=== PATIENT | male | born 1975 | race American Indian/Alaskan Native ===

== ENCOUNTER 2016-09-27 20:06 | Emergency (ER) | payer OTHER ==
[2016-09-28] MEDS ORDERED: HCTZ PO ONE (00:58)
[2016-09-28] MEDS ORDERED: NORVASC PO ONE (00:58)
[2016-09-28] MEDS ORDERED: ZESTRIL PO ONE (00:58)
[2016-09-28] MEDS ORDERED: CATAPRES PO ONE (01:46)
[2016-09-28 04:12] VITALS: BP 148/88
--- NOTE | 2016-09-28 04:18 | Emergency Department Report ---
ED General Adult HPI - General Chief complaint: High BP Stated complaint: HIGH BP Source: patient Mode of arrival: Ambulatory Limitations: No Limitations - History of Present Illness Initial comments: 41 year old male presents to ED with elevated blood pressure. patient states he was at a job physical and was sent to the ED because he had a BP of 188/122. patient states he has history of HBP but has been out of his meds x1 month due to being in [facility]. patient denies headache, dizziness, chest pain, SOB, nausea/ vomiting, syncope, lightheadness, SOB, weakness. patient is stable, neurologically intact and in no acute distress. -: Sudden Radiation: non-radiation Severity scale (0 -10): 0 Improves with: none Worsens with: none Associated Symptoms: denies other symptoms, loss of appetite. denies: confusion , chest pain, cough, diaphoresis, fever/chills, headaches, nausea/vomiting, rash , seizure, shortness of breath, syncope, weakness Treatments Prior to Arrival: none - Related Data Previous Rx's Medication Instructions Recorded Last Taken Type Hydrochlorothiazide [HCTZ] 12.5 mg PO BID #60 capsule 09/28/16 Unknown Rx Lisinopril [Zestril TAB] 5 mg PO QDAY #30 tablet 09/28/16 Unknown Rx amLODIPine [Norvasc] 5 mg PO DAILY #30 tab 09/28/16 Unknown Rx Allergies Allergy/AdvReac Type Severity Reaction Status Date / Time No Known Allergies Allergy Unverified 09/27/16 21:06 ED Review of Systems ROS: Stated complaint: HIGH BP Other details as noted in HPI Constitutional: denies: chills, fever Eyes: denies: eye pain, eye discharge, vision change ENT: denies: ear pain, throat pain Respiratory: denies: cough, shortness of breath, SOB with exertion, wheezing Cardiovascular: denies: chest pain, palpitations, edema, syncope Endocrine: no symptoms reported Gastrointestinal: denies: abdominal pain, nausea, diarrhea Genitourinary: denies: urgency, dysuria Musculoskeletal: denies: back pain, joint swelling, arthralgia Skin: denies: rash, lesions Neurological: denies: headache, weakness, paresthesias Psychiatric: denies: anxiety, depression Hematological/Lymphatic: denies: easy bleeding, easy bruising ED Past Medical Hx - Past Medical History Previous Medical History?: Yes Hx Hypertension: Yes (lisinopril, amlodipine, hctz,) - Surgical History Past Surgical History?: Yes Additional Surgical History: abdominal surgery - Social History Smoking Status: Never Smoker Substance Use Type: None - Medications Home Medications: Home Medications Medication Instructions Recorded Confirmed Last Taken Type Hydrochlorothiazide [HCTZ] 12.5 mg PO BID #60 capsule 09/28/16 Unknown Rx Lisinopril [Zestril TAB] 5 mg PO QDAY #30 tablet 09/28/16 Unknown Rx amLODIPine [Norvasc] 5 mg PO DAILY #30 tab 09/28/16 Unknown Rx ED Physical Exam - General Limitations: No Limitations General appearance: alert, in no apparent distress - Head Head exam: Present: atraumatic, normocephalic - Eye Eye exam: Present: normal appearance - ENT ENT exam: Present: normal exam, mucous membranes moist - Neck Neck exam: Present: normal inspection - Respiratory Respiratory exam: Present: normal lung sounds bilaterally. Absent: respiratory distress - Cardiovascular Cardiovascular Exam: Present: regular rate, normal rhythm. Absent: systolic murmur, diastolic murmur, rubs, gallop - GI/Abdominal GI/Abdominal exam: Present: soft, normal bowel sounds. Absent: distended, tenderness, guarding - Rectal Rectal exam: Present: deferred - Extremities Exam Extremities exam: Present: normal inspection, full ROM - Back Exam Back exam: Present: normal inspection, full ROM - Neurological Exam Neurological exam: Present: alert, oriented X3, normal gait - Expanded Neurological Exam Expanded Neurological exam: Absent: innattentive Patient oriented to: Present: person, place, time Speech: Present: fluid speech Cranial nerves: EOM's Intact: Normal, Nystagmus: Normal Cerebellar function: Finger to Nose: Normal Sensory exam: Upper Extremity Light Touch: Normal, Lower Extremity Light Touch: Normal Motor strength exam: RUE: 5, LUE: 5, RLE: 5, LLE: 5 DTR: bicep (R): 2+, bicep (L): 2+, knee (R): 2+, knee (L): 2+ Best Eye Response ([place]): (4) open spontaneously Best Motor Response ([place]): (6) obeys commands Best Verbal Response ([place]): (5) oriented [place] Total: 15 - Psychiatric Psychiatric exam: Present: normal affect, normal mood - Skin Skin exam: Present: warm, dry, intact, normal color. Absent: rash ED Course Vital Signs 09/27/16 09/28/16 09/28/16 21:07 00:10 01:53 Temperature 98.4 F 97.4 F L Pulse Rate 75 70 73 Respiratory 18 18 16 Rate Blood Pressure 157/108 Blood Pressure 171/104 196/150 [Right] O2 Sat by Pulse 100 99 95 Oximetry 09/28/16 09/28/16 02:52 04:11 Temperature Pulse Rate Respiratory Rate Blood Pressure Blood Pressure 148/102 148/88 [Right] O2 Sat by Pulse Oximetry ED Medical Decision Making - Lab Data Vital Signs 09/27/16 09/28/16 09/28/16 21:07 00:10 01:53 Temperature 98.4 F 97.4 F L Pulse Rate 75 70 73 Respiratory 18 18 16 Rate Blood Pressure 157/108 Blood Pressure 171/104 196/150 [Right] O2 Sat by Pulse 100 99 95 Oximetry 09/28/16 09/28/16 02:52 04:11 Temperature Pulse Rate Respiratory Rate Blood Pressure Blood Pressure 148/102 148/88 [Right] O2 Sat by Pulse Oximetry - Medical Decision Making 41 year old male presents to ED with hypertension. patient is asymptomatic. patient was given clonidine and his home meds which he has not had in approx 4weeks (lisinopril, norvasc, hctz) during ED visit. patient will be given 30 day supply of blood pressure medications while he seeks a new PCP. Critical care attestation.: If time is entered above; I have spent that time in minutes in the direct care of this critically ill patient, excluding procedure time. ED Disposition Clinical Impression: Hypertension Qualifiers: Hypertension type: essential hypertension Qualified Code(s): I10 - Essential ( primary) hypertension Disposition: DISCHARGED TO HOME OR SELFCARE Is pt being admited?: No Does the pt Need Aspirin: No Condition: Stable Instructions: Hypertension (ED) Prescriptions: amLODIPine [Norvasc] 5 mg PO DAILY #30 tab Hydrochlorothiazide [HCTZ] 12.5 mg PO BID #60 capsule Lisinopril [Zestril TAB] 5 mg PO QDAY #30 tablet Referrals: PRIMARY CARE, [Primary Care Provider] - 3-5 Days Forms: Work/School Release Form(ED)
== END 2016-09-28 04:16 | disposition home or self-care (01) ==
LOC: ED 20:06
DX: I10 Essential (primary) hypertension (principal)
CPT/HCPCS: 99282